=== PATIENT | male | born 1950 | race Caucasian/White ===

== ENCOUNTER 2017-05-26 15:53 | Inpatient (IN) | payer OTHER ==
[~2017-05-26] VITALS: Ht 172.7 cm; Wt 103.5 kg
[2017-05-26] MEDS ORDERED: TRMCR130WC TOP (16:36)
[2017-05-26] MEDS ORDERED: VERA120T15 PO (16:36)
[2017-05-26] MEDS ORDERED: METO25TA56 PO (16:36)
[2017-05-26] MEDS ORDERED: ATOR-24 PO (16:36)
[2017-05-26] MEDS ORDERED: MELO15TA4 PO (16:36)
[2017-05-26] MEDS ORDERED: FINA5TAB PO (16:36)
[2017-05-26] MEDS ORDERED: PRLSR20 PO (16:36)
[2017-05-26] MEDS ORDERED: LOSA50TA6 PO (16:36)
[2017-05-26] MEDS ORDERED: ASPI81TA28 PO (16:36)
--- NOTE | 2017-05-26 17:07 | DIAGNOSTIC IMAGING REPORT ---
ABD/PELVIS WITHOUT FOR STONE CT DOSE: 1550.15 mGy.cm HISTORY: Flank pain left flank pain eval for stone TECHNIQUE: Multiaxial CT images of the abdomen and pelvis were performed without the use of intravenous and oral contrast according to the standard department stone protocol. A dose lowering technique was utilized adhering to the principles of ALARA. COMPARISON STUDY: None. FINDINGS: Lung bases are clear. Liver and spleen are unremarkable in configuration. Gallbladder is negative for distention. Mild fatty replacement of the pancreas. Several nonobstructing bilateral renal calcifications. Several small bilateral renal cysts. Mild left renal hydroureteronephrosis. 3 mm partially obstructing calculus distal left ureter several centimeters from the left ureterovesical junction area in mild periureteral infiltrative change. Chronic colonic diverticulosis. No evidence for acute diverticulitis. Generalized atherosclerotic change and ectasia abdominal aorta. No well-defined focal aneurysm. Chronic sigmoid diverticulosis. IMPRESSION: 1. 3 mm calculus distal left ureter creating mild left renal hydroureteronephrosis. 2. Several additional nonobstructing renal calcifications bilaterally. 3. Chronic colonic diverticulosis. No evidence for acute diverticulitis. The above report was generated using voice recognition software. It may contain grammatical, syntax or spelling errors. Electronically signed by: Guanaco Ernst M.D. 05/26/2017 5:06 PM Dictated Date/Time: 05/26/2017 5:03 PM
[2017-05-26] MEDS ORDERED: SODIUM CHLORIDE 0.9% 1000ML 1,000 ML IV STA (17:14)
[2017-05-26] MEDS ORDERED: TAMSULOSIN HCL 0.4 MG CAP PO ONE (17:15)
[2017-05-26] MEDS ORDERED: CIPROFLOXACIN 400MG / 200ML D5W IV STA (17:19)
[2017-05-26 18:01] LABS: BASO % 0.4 %; BASO ABS # 0.05 K/uL (0-0.2); COMPLETE YES; EOS % 0.6 %; HEMATOCRIT 37.3 % (42-52); IG% 0.3 %; LYMPH % 11.6 %; LYMPH ABS # 1.37 K/uL (1.2-3.4); MEAN CELL VOLUME 83.8 fL (80-100); MEAN CORPUSCULAR HEMOGLOBIN 29.2 pg (25-34); MEAN CORPUSCULAR HGB CONC 34.9 g/dl (32-36); MEAN PLATELET VOLUME 9.1 fL (7.4-10.4); MONO % 10.3 %; NEUT % 76.8 %; PLATELET COUNT 249 K/uL (130-400); RED BLOOD COUNT 4.45 M/uL (4.7-6.1); WHITE BLOOD COUNT 11.82 K/uL (4.8-10.8)
[2017-05-26 18:05] LABS: URINE APPEARANCE CLEAR (CLEAR); URINE BILIRUBIN NEG (NEG); URINE COLOR YELLOW; URINE NITRITE NEG (NEG); URINE SPECIFIC GRAVITY 1.016 (1.000-1.030); UROBILINOGEN NEG (NEG)
--- NOTE | 2017-05-26 18:07 | EMERGENCY ROOM VISIT NOTE ---
History Report prepared by Fariha: Debbie Vuong Under the Supervision of: Dr. Adam Sprague M.D. First contact with patient: 16:16 Chief Complaint: ABNORMAL LABS Stated Complaint: ABNORMAL LABS- PHYSICIAN REFERRED History of Present Illness The patient is a 66 year old male who presents to the Emergency Room after abnormal labs that were drawn earlier today. The patient has been having LLQ abdominal pain for the past 3 days. He describes his pain as an ache. It improves with ibuprofen, and he rates his current pain as a 4/10 in severity. The patient notes some dizziness when he changes position. He denies fever, urinary symptoms, vomiting, and diarrhea. He has not had a bowel movement in 3 days. This is unusual for him. He also notes decreased appetite and states that he really has not eaten over the past 3 days. The patient saw his PCP, Dr. Alvarado, today for his symptoms. He ordered blood work and scheduled a CT for tomorrow afternoon. The patient's creatinine went from 1-1.9 and so the office called him and told him to come to the ED today for further evaluation. Source of History: patient Onset: today Position: abdomen (LLQ) Symptom Intensity: 4/10 Quality: ache Timing: constant Modifying Factors (Relieving): ibuprofen Associated Symptoms: No fevers, No vomiting, No diarrhea, No urinary symptoms Note: Pt notes constipation and dizziness with changing position. Review of Systems See HPI for pertinent positives & negatives. A total of 10 systems reviewed and were otherwise negative. Past Medical & Surgical Medical Problems: (1) Hypertension Family History No pertinent history stated. Social History Smoking Status: Former Smoker Marital Status: Housing Status: lives with significant other Current/Historical Medications Scheduled Aspirin (Aspirin Ec), 81 MG PO DAILY Atorvastatin (Lipitor), 40 MG PO DAILY Finasteride (Proscar), 5 MG PO DAILY Losartan Potassium (Cozaar), 50 MG PO DAILY Metoprolol Tartrate (Lopressor) (Lopressor), 37.5 MG PO BID Omeprazole (Prilosec), 20 MG PO DAILY Triamcinolone Acet (Aristocort 0.1%), 1 APPLN TOP BID Verapamil (Calan), 120 MG PO TID Scheduled PRN Meloxicam (Mobic), 15 MG PO DAILY PRN for Pain Physical Exam Vital Signs Date Time Temp Pulse Resp B/P (MAP) Pulse Ox O2 Delivery O2 Flow Rate FiO2 05/26/17 16:05 36.9 77 18 153/75 96 Room Air Physical Exam Constitutional: Vital signs reviewed. Eyes: Pupils are equal round reactive to light. Conjunctiva are noninjected. ENT: Pharynx is clear without erythema or exudate. Mucous membranes are moist. Neck supple without meningeal signs. Respiratory: Clear to auscultation bilaterally. Breath sounds are equal bilaterally. Cardiovascular: Regular rate and rhythm. No rubs or gallops. GI: Soft, nondistended. Minimal LLQ tenderness, no guarding. Bowel sounds are present. Musculoskeletal: No peripheral edema. No CVA tenderness. Integumentary: No cyanosis. Neurological: The patient is awake and alert. No focal deficits. Psychiatric: Normal affect. Medical Decision & Procedures ER Provider Diagnostic Interpretation: Radiology results as stated below per my review and the radiologist's interpretation: ABD/PELVIS WITHOUT FOR STONE CT DOSE: 1550.15 mGy.cm HISTORY: Flank pain left flank pain eval for stone TECHNIQUE: Multiaxial CT images of the abdomen and pelvis were performed without the use of intravenous and oral contrast according to the standard department stone protocol. A dose lowering technique was utilized adhering to the principles of ALARA. COMPARISON STUDY: None. FINDINGS: Lung bases are clear. Liver and spleen are unremarkable in configuration. Gallbladder is negative for distention. Mild fatty replacement of the pancreas. Several nonobstructing bilateral renal calcifications. Several small bilateral renal cysts. Mild left renal hydroureteronephrosis. 3 mm partially obstructing calculus distal left ureter several centimeters from the left ureterovesical junction area in mild periureteral infiltrative change. Chronic colonic diverticulosis. No evidence for acute diverticulitis. Generalized atherosclerotic change and ectasia abdominal aorta. No well-defined focal aneurysm. Chronic sigmoid diverticulosis. IMPRESSION: 1. 3 mm calculus distal left ureter creating mild left renal hydroureteronephrosis. 2. Several additional nonobstructing renal calcifications bilaterally. 3. Chronic colonic diverticulosis. No evidence for acute diverticulitis. The above report was generated using voice recognition software. It may contain grammatical, syntax or spelling errors. Electronically signed by: Guanaco Ernst M.D. 05/26/2017 5:06 PM Dictated Date/Time: 05/26/2017 5:03 PM Laboratory Results 05/26/17 17:36 Red Blood Count 4.45, Mean Corpuscular Volume 83.8, Mean Corpuscular Hemoglobin 29.2, Mean Corpuscular Hemoglobin Concent 34.9, Mean Platelet Volume 9.1, Neutrophils (%) (Auto) 76.8, Lymphocytes (%) (Auto) 11.6, Monocytes (%) (Auto) 10.3, Eosinophils (%) (Auto) 0.6, Basophils (%) (Auto) 0.4, Neutrophils # (Auto ) 9.08, Lymphocytes # (Auto) 1.37, Monocytes # (Auto) 1.22, Eosinophils # (Auto ) 0.07, Basophils # (Auto) 0.05 Test 05/26/17 17:30 05/26/17 17:36 05/26/17 17:41 White Blood Count 11.82 K/uL (4.8-10.8) Red Blood Count 4.45 M/uL (4.7-6.1) Hemoglobin 13.0 g/dL (14.0-18.0) Hematocrit 37.3 % (42-52) Mean Corpuscular Volume 83.8 fL (80-100) Mean Corpuscular Hemoglobin 29.2 pg (25-34) Mean Corpuscular Hemoglobin Concent 34.9 g/dl (32-36) Platelet Count 249 K/uL (130-400) Mean Platelet Volume 9.1 fL (7.4-10.4) Neutrophils (%) (Auto) 76.8 % Lymphocytes (%) (Auto) 11.6 % Monocytes (%) (Auto) 10.3 % Eosinophils (%) (Auto) 0.6 % Basophils (%) (Auto) 0.4 % Neutrophils # (Auto) 9.08 K/uL (1.4-6.5) Lymphocytes # (Auto) 1.37 K/uL (1.2-3.4) Monocytes # (Auto) 1.22 K/uL (0.11-0.59) Eosinophils # (Auto) 0.07 K/uL (0-0.5) Basophils # (Auto) 0.05 K/uL (0-0.2) RDW Standard Deviation 45.8 fL (36.4-46.3) RDW Coefficient of Variation 14.9 % (11.5-14.5) Immature Granulocyte % (Auto) 0.3 % Immature Granulocyte # (Auto) 0.03 K/uL (0.00-0.02) Labs from earlier today from [facility]: BUN 25 Creatinine 1.9 WBC 14 with a left shift Urine shows trace blood, few bacteria, and 3-5 WBCs ED Course 1616: The patient was evaluated in room B8. A complete history and physical exam was performed. 1712: I reassessed the patient at this time. He is feeling better and resting comfortably. I discussed the results and treatment plan with the patient. I answered all pertaining questions that he had. He expressed understanding and verbalized agreement. 1714: NSS 1000 ml @ 999 mls/hr IV 1715: Flomax 0.4 mg PO 1718: I spoke with DORI Parkinson. We discussed the patients case. The patient will be evaluated by the [facility] for further management. 1719: Cipro 400 mg IV Medical Decision This is a 66-year-old male who presents with left-sided abdominal pain. Differential diagnosis includes ureterolithiasis, hydronephrosis, renal failure , diverticulitis, abscess. I did perform a limited focused review of portions of the patient's old chart on the electronic medical record. The patient has had no recent pertinent visits to this hospital. I did evaluate the patient as noted above. IV access was established. The patient was treated with normal saline IV. I did order a urinalysis. He does have a I did order a CT of the abdomen and pelvis. I did review the images myself as well as the radiology report as described above. He does have a 3 mm left distal ureteral stone. Blood work was done prior to arrival. I did treat the patient with IV Cipro and NS. He was also given Flomax. I did discuss the case with the hospitals and rehabilitation case coordinator. I did discuss the test results with the patient and his . Medication Reconcilliation Current Medication List: was personally reviewed by me Blood Pressure Screening Patient's blood pressure: Elevated blood pressure Blood pressure disposition: Referred to PCP Consults Time Called: 1715 Consulting Physician: DORI Parkinson Returned Call: 1718 I spoke with DORI Parkinson. We discussed the patients case. The patient will be evaluated by the [facility] for further management. Impression Primary Impression: Acute kidney injury Additional Impressions: Obstructive uropathy Kidney stone on left side UTI (urinary tract infection) Scribe Attestation The scribe's documentation has been prepared under my direct and personally reviewed by me in its entirety. I confirm that the note above accurately reflects all work, treatment, procedures, and medical decision making performed by me. Departure Information Dispostion Being Evaluated By Hospitalist Referrals Fabian Alvarado MD (PCP) Patient Instructions My [facility] Problem Qualifiers Additional Impressions: UTI (urinary tract infection) Urinary tract infection type: site unspecified Hematuria presence: with hematuria Qualified Codes: N39.0 - Urinary tract infection, site not specified ; R31.9 - Hematuria, unspecified
[2017-05-26 18:08] LABS: MANUAL MICROSCOPIC REQUIRED? NO; REVIEW REQ? NO
[2017-05-26] MEDS ORDERED: ONDANSETRON INJ 2 MG/ML 2 ML VIAL IV PRN (18:15)
[2017-05-26] MEDS: SODIUM CHLORIDE 0.9% 1000ML 1,000 ML IV SCH (18:15)
[2017-05-26] MEDS ORDERED: MoRPHine SULFATE 4 MG/ML 1 ML CARP\\VIAL IV PRN (18:15)
[2017-05-26] MEDS ORDERED: ACETAMINOPHEN 325 MG TAB PO PRN (18:15)
[2017-05-26] MEDS ORDERED: MoRPHine SULFATE 4 MG/ML 1 ML CARP\\VIAL ONE (18:17)
[2017-05-26 18:21] LABS: BUN/CREATININE RATIO 12.4 (10-20); POTASSIUM 4.1 mmol/L (3.5-5.1)
[2017-05-26] MEDS ORDERED: PATIENT'S ALLERGY INFO NEEDS ENTERED SCH (18:30)
[2017-05-26 19:05] VITALS: Ht 172.7 cm; Wt 103.5 kg
[2017-05-26 19:30] VITALS: BP 144/77; PULSE 86; TEMP 36.9; O2SAT 96
[2017-05-26] MEDS: HYDROCODONE/ACETAMOPHEN 5/325MG TAB PO PRN (19:48)
[2017-05-26] MEDS ORDERED: PNEUMOCOCCAL POLYSACCHARIDES 25 MCG/0.5 ML VIAL/SYR IM. ONE (20:30)
[2017-05-26] MEDS ORDERED: PNEUMOCOCCAL ADMINISTRATION CHARGE ONE (20:30)
[2017-05-26 21:00] VITALS: BP 125/69; PULSE 77
[2017-05-26] MEDS: FINASTERIDE 5 MG TAB PO SCH (21:01)
[2017-05-26] MEDS: ATORVASTATIN 40 MG TAB PO SCH (21:01)
[2017-05-26] MEDS: METOPROLOL TARTRATE 25 MG TAB PO SCH (21:02)
[2017-05-26] MEDS: VERAPAMIL HCL 40 MG TAB PO SCH (21:02)
--- NOTE | 2017-05-26 21:13 | History and Physical ---
History & Physical Date & Time of Service: May 26, 2017 ~ 17:45 Chief Complaint: Flank Pain Primary Care Physician: Fabian Alvarado MD History of Present Illness 66 year old male who was referred to the ER by his PCP for evaluation of flank pain and abnormal outpatient labs. Patient reports that he started to develop left lower back pain about 4 days ago. Pain has started to wrap around left side. He has felt nauseous and had a couple episodes of vomiting. He denies hematemesis or coffee ground emesis. He reports a poor appetite. He has not had a bowel movement in 4 days. He has been taking Motrin around the clock for the past 4 days for the pain. He saw his PCP today for these complaints and outpatient labs were obtained that showed a creat of 1.9 and WBC 14K. He was then referred to the ER for further evaluation. Patient denies chest pain and shortness of breath. No fevers or chills. He denies lightheadedness, dizziness, diaphoresis, or syncopal events. He denies any urinary symptoms or hematuria. Upon arrival to the ER, patient had a CT abd/pelvis that is showing 3mm distal left ureteral stone with mild hydronephrosis. U/A is clean. WBC 11.8, creat 2.0. Patient was given IV Cipro, IVF, and Flomax. Past Medical/Surgical History Medical Problems: (1) Dyslipidemia Status: Chronic (2) HTN (hypertension) Status: Chronic Surgical Problems: (1) History of vasectomy Status: Chronic Family History FH: CHF (congestive heart failure) MOTHER Social History Smoking Status: Former Smoker Alcohol Use: occasionally Marital Status: Immunizations History of Influenza Vaccine: Yes Influenza Vaccine Date: Jul 16, 2016 History of Tetanus Vaccine?: Yes Tetanus Immunization Date: Oct 17, 2009 Allergies Coded Allergies: No Known Allergies (Unverified , 05/26/17) Home Medications Scheduled Aspirin (Aspirin Ec), 81 MG PO DAILY Atorvastatin (Lipitor), 40 MG PO DAILY Finasteride (Proscar), 5 MG PO DAILY Losartan Potassium (Cozaar), 50 MG PO DAILY Metoprolol Tartrate (Lopressor) (Lopressor), 37.5 MG PO BID Triamcinolone Acet (Aristocort 0.1%), 1 APPLN TOP BID Verapamil (Calan), 120 MG PO TID Scheduled PRN Meloxicam (Mobic), 15 MG PO DAILY PRN for Pain Review of Systems ROS per HPI, all other systems reviewed and negative Physical Exam Vital Signs Date Time Temp Pulse Resp B/P (MAP) Pulse Ox O2 Delivery O2 Flow Rate FiO2 05/26/17 19:40 Room Air 05/26/17 19:30 36.9 86 18 144/77 (99) 96 Room Air 05/26/17 19:05 Room Air 05/26/17 18:27 82 18 125/69 95 Room Air 05/26/17 16:05 36.9 77 18 153/75 96 Room Air General Appearance: no apparent distress Head: normocephalic Eyes: normal inspection ENT: hearing grossly normal Neck: supple, no JVD Respiratory/Chest: lungs clear, normal breath sounds, no respiratory distress Cardiovascular: regular rate, rhythm, no edema, normal peripheral pulses Abdomen/GI: normal bowel sounds, soft, + tenderness (LLQ), + distended Back: no CVA tenderness Extremities/Musculoskelatal: normal inspection, no calf tenderness Neurologic/Psych: no motor/sensory deficits, alert, normal mood/affect, oriented x 3 Skin: normal color, warm/dry Diagnostics Laboratory Results Results Past 24 Hours Test 05/26/17 17:30 05/26/17 17:36 05/26/17 17:41 Range/Units Urine Color YELLOW Urine Appearance CLEAR CLEAR Urine pH 5.0 4.5-7.5 Urine Specific [place] 1.016 1.000-1.030 Urine Protein NEG NEG Urine Glucose (UA) NEG NEG Urine Ketones NEG NEG Urine Occult Blood NEG NEG Urine Nitrite NEG NEG Urine Bilirubin NEG NEG Urine Urobilinogen NEG NEG Urine Leukocyte Esterase NEG NEG White Blood Count 11.82 4.8-10.8 K/uL Red Blood Count 4.45 4.7-6.1 M/uL Hemoglobin 13.0 14.0-18.0 g/dL Hematocrit 37.3 42-52 % Mean Corpuscular Volume 83.8 80-100 fL Mean Corpuscular Hemoglobin 29.2 25-34 pg Mean Corpuscular Hemoglobin Concent 34.9 32-36 g/dl Platelet Count 249 130-400 K/uL Mean Platelet Volume 9.1 7.4-10.4 fL Neutrophils (%) (Auto) 76.8 % Lymphocytes (%) (Auto) 11.6 % Monocytes (%) (Auto) 10.3 % Eosinophils (%) (Auto) 0.6 % Basophils (%) (Auto) 0.4 % Neutrophils # (Auto) 9.08 1.4-6.5 K/uL Lymphocytes # (Auto) 1.37 1.2-3.4 K/uL Monocytes # (Auto) 1.22 0.11-0.59 K/uL Eosinophils # (Auto) 0.07 0-0.5 K/uL Basophils # (Auto) 0.05 0-0.2 K/uL RDW Standard Deviation 45.8 36.4-46.3 fL RDW Coefficient of Variation 14.9 11.5-14.5 % Immature Granulocyte % (Auto) 0.3 % Immature Granulocyte # (Auto) 0.03 0.00-0.02 K/uL Sodium Level 142 136-145 mmol/L Potassium Level 4.1 3.5-5.1 mmol/L Chloride Level 112 98-107 mmol/L Carbon Dioxide Level 23 21-32 mmol/L Anion Gap 7.0 3-11 mmol/L Blood Urea Nitrogen 25 7-18 mg/dl Creatinine 2.00 0.60-1.40 mg/dl Est Creatinine Clear Calc Drug Dose 41.8 ml/min Estimated GFR () 38.9 Estimated GFR (Non- 33.5 BUN/Creatinine Ratio 12.4 10-20 Random Glucose 87 70-99 mg/dl Calcium Level 9.0 8.5-10.1 mg/dl Total Bilirubin 0.9 0.2-1 mg/dl Aspartate Amino Transf (AST/SGOT) 19 15-37 U/L Alanine Aminotransferase (ALT/SGPT) 28 12-78 U/L Alkaline Phosphatase 106 45-117 U/L Total Protein 7.5 6.4-8.2 gm/dl Albumin 3.7 3.4-5.0 gm/dl Globulin 3.8 2.5-4.0 gm/dl Albumin/Globulin Ratio 1.0 0.9-2 Lactic Acid Level 1.1 0.4-2.0 mmol/L Microbiology Results 05/26/17 Blood Culture, Received Pending 05/26/17 Blood Culture, Received Pending 05/26/17 Urine Culture, Received Pending Diagnostic Radiology CT ABD/PELVIS IMPRESSION: 1. 3 mm calculus distal left ureter creating mild left renal hydroureteronephrosis. 2. Several additional nonobstructing renal calcifications bilaterally. 3. Chronic colonic diverticulosis. No evidence for acute diverticulitis. Impression Assessment and Plan LEFT URETERAL CALCULI, HYDRONEPHROSIS - admit to tele - patient presenting with left flank pain x 4 days; outpatient labs showed CARLOS and leukocytosis, was referred to ER for further evaluation where CT abd/pelvis is showing 3mm distal left ureteral calculi with mild hydronephrosis - IVF, Flomax, pain control - strain urine - urine clean, WBC 11K, afebrile - no need for antibiotics - case discussed with Dr. Tee - will observe overnight, keep NPO after midnight for possible cysto CARLOS - likely multifactorial - prerenal due to poor PO intake and vomiting, increased used of NSAIDs, and obstructive due to renal calculi - IVF, hold ARB - follow up labs in AM HTN - BP controlled - holding losartan due to CARLOS - continue metoprolol and verapamil DYSLIPIDEMIA - continue statin DVT PROPHYLAXIS - SCDs due to possible procedure tomorrow DISPO - In my clinical judgment this beneficiary meets acute admission criteria, established by [facility], that includes being hospitalized through two midnights. I have seen and examined the patient and agree with the assessment and plan as stated. I will cont the Cipro campos-operatively until otherwise advised by Dr. Tee. NPO p MN for poss OR tomorrow. Cont pain control and IVF/Flomax. [place], DO Advanced Directives Existing Living Will: Yes Existing Power of Computer Aided Drafter: Yes VTE Prophylaxis VTE Risk Assessment Done? Y/N: Yes Risk Level: Moderate
--- NOTE | 2017-05-26 22:01 | Urology Consultation ---
History General Date of Service: May 26, 2017. Chief Complaint: L flank pain Primary Care Physician: Fabian Alvarado MD Pt seen a urologist before?: Yes If yes, why?: For an elevated PSA. History of Present Illness Patient is a pleasant 66-year-old male admitted due to intractable left-sided flank pain. He notes this started several days ago and he has been treating with large amounts of Motrin at home. This was associated with nausea and malaise. He notes that approximately 10 years ago he had a similar episode of colic but this past. He is unsure if he passed a stone. Patient has seen several urologists in the past for history of an elevated PSA. Most recently he follows up with [facility] for this evaluation. He has not been diagnosed with prostate cancer in the past. He denies difficulties with gross hematuria or recurrent colic. He is on finasteride for voiding issues. ER notes and hospitalist notes reviewed. CT scan images personally reviewed. Urology consultation is requested to assist with the patient's care. Of note, his creatinine is up to 2 on his current admission. He notes his pain has currently resolved after a single dose of Vicodin. HPI - Stones Number: 4 Size: obstructing stone 3 mm in size Location: left, UVJ Pain: left flank Patient has: + nausea, + hydronephrosis, No gross hematuria ER Visits: number (1) Prior stone composition: unknown Imaging Imaging: CT Laboratory Last 24 Hours Test 05/26/17 17:30 05/26/17 17:36 05/26/17 17:41 Urine Color YELLOW Urine Appearance CLEAR Urine pH 5.0 Urine Specific [place] 1.016 Urine Protein NEG Urine Glucose (UA) NEG Urine Ketones NEG Urine Occult Blood NEG Urine Nitrite NEG Urine Bilirubin NEG Urine Urobilinogen NEG Urine Leukocyte Esterase NEG White Blood Count 11.82 K/uL Red Blood Count 4.45 M/uL Hemoglobin 13.0 g/dL Hematocrit 37.3 % Mean Corpuscular Volume 83.8 fL Mean Corpuscular Hemoglobin 29.2 pg Mean Corpuscular Hemoglobin Concent 34.9 g/dl Platelet Count 249 K/uL Mean Platelet Volume 9.1 fL Neutrophils (%) (Auto) 76.8 % Lymphocytes (%) (Auto) 11.6 % Monocytes (%) (Auto) 10.3 % Eosinophils (%) (Auto) 0.6 % Basophils (%) (Auto) 0.4 % Neutrophils # (Auto) 9.08 K/uL Lymphocytes # (Auto) 1.37 K/uL Monocytes # (Auto) 1.22 K/uL Eosinophils # (Auto) 0.07 K/uL Basophils # (Auto) 0.05 K/uL RDW Standard Deviation 45.8 fL RDW Coefficient of Variation 14.9 % Immature Granulocyte % (Auto) 0.3 % Immature Granulocyte # (Auto) 0.03 K/uL Sodium Level 142 mmol/L Potassium Level 4.1 mmol/L Chloride Level 112 mmol/L Carbon Dioxide Level 23 mmol/L Anion Gap 7.0 mmol/L Blood Urea Nitrogen 25 mg/dl Creatinine 2.00 mg/dl Est Creatinine Clear Calc Drug Dose 41.8 ml/min Estimated GFR () 38.9 Estimated GFR (Non- 33.5 BUN/Creatinine Ratio 12.4 Random Glucose 87 mg/dl Calcium Level 9.0 mg/dl Total Bilirubin 0.9 mg/dl Aspartate Amino Transf (AST/SGOT) 19 U/L Alanine Aminotransferase (ALT/SGPT) 28 U/L Alkaline Phosphatase 106 U/L Total Protein 7.5 gm/dl Albumin 3.7 gm/dl Globulin 3.8 gm/dl Albumin/Globulin Ratio 1.0 Lactic Acid Level 1.1 mmol/L Past History BPH, hypertension, kidney stones, renal disease Past Surgical History: colonoscopy, vasectomy, other (prostate biopsy) Family History FH: CHF (congestive heart failure) MOTHER Social History Hx Tobacco Use In Past Year?: No Smoking: quit greater than 1 year Alcohol: occasional Marital status: Housing status: lives with family Immunizations History of Influenza Vaccine: Yes Influenza Vaccine Date: Jul 16, 2016 History of Tetanus Vaccine?: Yes Tetanus Immunization Date: Oct 17, 2009 Allergies Coded Allergies: No Known Allergies (Unverified , 05/26/17) Medications Home Medications: Home Meds and Scripts Medications Dose Route/Sig Max Daily Dose Days Date Category Dose Instructions Mobic (Meloxicam) 15 Mg Tab 15 Mg PO DAILY PRN 05/26/17 Reported Aspirin Ec (Aspirin) 81 Mg Tab 81 Mg PO DAILY 05/26/17 Reported Lopressor (Metoprolol Tartrate) 25 Mg Tab 37.5 Mg PO BID 05/26/17 Reported TAKE 1 & 1/2 OF 25 MG TAB Lipitor (Atorvastatin Calcium) 40 Mg Tab 40 Mg PO DAILY 05/26/17 Reported Proscar (Finasteride) 5 Mg Tab 5 Mg PO DAILY 05/26/17 Reported Calan (Verapamil HCl) 120 Mg Tab 120 Mg PO TID 05/26/17 Reported Aristocort 0.1% (Triamcinolone Acet) 90 Appln/30 Gm Cr 1 Appln TOP BID 05/26/17 Reported Cozaar (Losartan Potassium) 50 Mg Tab 50 Mg PO DAILY 05/26/17 Reported Inpatient Medications: Current Inpatient Medications Medications (Trade) Dose Ordered Sig/Lo Route Start Time Stop Time Status Last Admin Dose Admin Morphine Sulfate (MoRPHine SULFATE INJ) 4 mg Q4H PRN IV 05/26/17 18:15 06/09/17 18:14 Acetaminophen (Tylenol Tab) 650 mg Q4H PRN PO 05/26/17 18:15 06/25/17 18:14 Ondansetron HCl (Zofran Inj) 4 mg Q6H PRN IV 05/26/17 18:15 06/25/17 18:14 Sodium Chloride 1,000 ml @ 125 mls/hr Q8H IV 05/26/17 18:15 06/25/17 18:14 05/26/17 18:15 125 MLS/HR Tamsulosin HCl (Flomax Cap) 0.4 mg QAM PO 05/27/17 09:00 06/26/17 08:59 Acetaminophen/ Hydrocodone Bitart ([place] 5/325 Tab) 1 tab Q6H PRN PO 05/26/17 18:30 06/09/17 18:29 05/26/17 19:48 1 TAB Metoprolol Tartrate (Lopressor Tab) 37.5 mg BID PO 05/26/17 21:00 06/25/17 20:59 05/26/17 21:02 37.5 MG Verapamil HCl (Isoptin Tab) 120 mg TID PO 05/26/17 21:00 06/25/17 20:59 05/26/17 21:02 120 MG Atorvastatin Calcium (Lipitor Tab) 40 mg HS PO 05/26/17 21:00 06/25/17 20:59 05/26/17 21:01 40 MG Finasteride (Proscar Tab) 5 mg HS PO 05/26/17 21:00 06/25/17 20:59 05/26/17 21:01 5 MG Review of Systems Review of Systems Constitutional: No fever, No chills Eyes: No double vision Neurological: No passing out, No numbness/tingling Endocrine: + tired/sluggish Gastrointestinal: + abdominal pain, + nausea Cardiovascular: No angina, No irregular heartbeat Respiratory: No coughing up blood Skin: No boils Musculoskeletal: + back pain Blood / Lymphatic: No swollen glands Ears / Nose / Throat: No sinus, No hoarse voice Psychologic / Mental: No trouble remembering Male : + see HPI, + kidney stones Physical Exam Vital Signs: Vital Signs Past 12 Hours Date Time Temp Pulse Resp B/P (MAP) Pulse Ox O2 Delivery O2 Flow Rate FiO2 05/26/17 21:00 77 125/69 (87) 05/26/17 19:40 Room Air 05/26/17 19:30 36.9 86 18 144/77 (99) 96 Room Air 05/26/17 19:05 Room Air 05/26/17 18:27 82 18 125/69 95 Room Air 05/26/17 16:05 36.9 77 18 153/75 96 Room Air Physical Exam: General Appearance: no apparent distress, + obese ENT: hearing grossly normal Neck: supple, no adenopathy Respiratory/Chest: no respiratory distress, no accessory muscle use Cardiovascular: no JVD Gastrointestinal: Abdomen: normal abdomen Bladder: normal bladder Hernia: absent hernia Liver: normal liver Spleen: normal spleen Extremities: non-tender Neurologic/Psychiatric: alert Skin: normal color Assessment & Plan Assessment & Plan A/P 66-year-old male with a left 3 mm distal ureteral stone, colic and renal failure. Findings reviewed with the patient. Most concerning aspect of his presentation is his renal failure on passage of a relatively small stone. This may be multifactorial in origin including NSAID use, dehydration as well as obstruction. He is currently receiving IV fluids and notes his pain is controlled with relatively low doses of oral pain medication. We'll check his a.m. creatinine. If his renal function has improved and his pain remains controlled with low-dose narcotic medication may be reasonable to proceed with a trial of passage at home. However, in light of his renal function, there'll be a low threshold for intervention, likely in the form of ureteroscopic stone extraction and left ureteral stenting. Patient is nothing by mouth after midnight for possible intervention. He has been covered with ciprofloxacin by the primary service. Thank you for allowing us to participate in this patient's acute care. Will follow this patient with you.
[2017-05-26 22:52] VITALS: BP 101/63; PULSE 63; TEMP 37; O2SAT 94
[2017-05-27] VITALS (11 sets, daily range): BP systolic 121–161; BP diastolic 66–82; PULSE 80–109; TEMP 36.8–37.1; O2SAT 91–96
[2017-05-27] MEDS: SODIUM CHLORIDE 0.9% 1000ML 1,000 ML IV SCH ×3 (02:11→17:45)
[2017-05-27] MEDS: HYDROCODONE/ACETAMOPHEN 5/325MG TAB PO PRN ×2 (02:15→09:36)
[2017-05-27] MEDS: CIPROFLOXACIN / D5W 400 MG in PREMIXED IN D5W 200 ML IV SCH ×2 (05:44→17:42)
[2017-05-27 05:52] LABS: HEMATOCRIT 34.5 % (42-52); MEAN CELL VOLUME 84.4 fL (80-100); MEAN CORPUSCULAR HEMOGLOBIN 28.9 pg (25-34); MEAN CORPUSCULAR HGB CONC 34.2 g/dl (32-36); MEAN PLATELET VOLUME 8.9 fL (7.4-10.4); PLATELET COUNT 204 K/uL (130-400); RED BLOOD COUNT 4.09 M/uL (4.7-6.1); WHITE BLOOD COUNT 9.53 K/uL (4.8-10.8)
[2017-05-27 06:39] LABS: BUN/CREATININE RATIO 11.8 (10-20); CALCIUM 8.3 mg/dl (8.5-10.1); POTASSIUM 4.2 mmol/L (3.5-5.1)
--- NOTE | 2017-05-27 06:39 | DIAGNOSTIC IMAGING REPORT ---
KUB HISTORY: 66 years-old Male follow-up renal calculi. COMPARISON: CT abdomen and pelvis 05/26/2017 TECHNIQUE: KUB radiograph FINDINGS: The previously noted 5 mm calculus of the distal left ureter is still seen within the left lower pelvis in the region of the ureterovesicular junction. Bilateral nephrolithiasis redemonstrated. Pattern is nonobstructive. No fracture. Degenerative changes are seen about the hips and lumbar spine. IMPRESSION: 1. 5 mm calculus of the distal left ureter appears unchanged in positioning. 2. Nephrolithiasis. The above report was generated using voice recognition software. It may contain grammatical, syntax or spelling errors. Electronically signed by: Isaac Aguilar M.D. 05/27/2017 6:38 AM Dictated Date/Time: 05/27/2017 6:35 AM
--- NOTE | 2017-05-27 07:53 | Progress Note ---
Subjective Date of Service: May 27, 2017. Subjective Pt evaluation today including: conversation w/ patient, physical exam, chart review, lab review, review of inpatient medication list Pain: Persists, controlled with meds PO Intake: NPO per orders Voiding: no voiding problems 66 yo male with distal L ureteral stone, intractable colic, renal failure. Unfortunately his KUB this AM shows persistence of his distal L ureteral stone and his Cr is unimproved at 2. He denies stone passage. KUB images reviewed personally. His symptoms remain, controlled with PRN meds. Review of Systems Constitutional: No fever, No chills Eyes: No worsening of vision ENT: No hearing loss Respiratory: No wheezing, No shortness of breath Cardiac: No chest pain Abdomen: + pain, + nausea Neurologic: No memory loss, No paralysis Psychiatric: No depression symptoms Heme: No clotting problems, No night sweats Endo: No fatigue Skin: No new/changing skin lesions Objective Vital Signs Date Time Temp Pulse Resp B/P (MAP) Pulse Ox O2 Delivery O2 Flow Rate FiO2 05/26/17 22:52 37.0 63 16 101/63 (76) 94 Room Air 05/26/17 21:00 77 125/69 (87) 05/26/17 19:40 Room Air 05/26/17 19:30 36.9 86 18 144/77 (99) 96 Room Air 05/26/17 19:05 Room Air 05/26/17 18:27 82 18 125/69 95 Room Air 05/26/17 16:05 36.9 77 18 153/75 96 Room Air Physical Exam General Appearance: + mild distress, + obese ENT: normal ENT inspection, hearing grossly normal Neck: supple, no adenopathy Respiratory/Chest: no respiratory distress, no accessory muscle use Cardiovascular: no JVD Abdomen: non tender, soft Neurologic/Psychiatric: alert Skin: normal color Laboratory Results Last 24 Hours Test 05/26/17 17:30 05/26/17 17:36 05/26/17 17:41 05/27/17 05:40 Urine Color YELLOW Urine Appearance CLEAR Urine pH 5.0 Urine Specific [place] 1.016 Urine Protein NEG Urine Glucose (UA) NEG Urine Ketones NEG Urine Occult Blood NEG Urine Nitrite NEG Urine Bilirubin NEG Urine Urobilinogen NEG Urine Leukocyte Esterase NEG White Blood Count 11.82 K/uL 9.53 K/uL Red Blood Count 4.45 M/uL 4.09 M/uL Hemoglobin 13.0 g/dL 11.8 g/dL Hematocrit 37.3 % 34.5 % Mean Corpuscular Volume 83.8 fL 84.4 fL Mean Corpuscular Hemoglobin 29.2 pg 28.9 pg Mean Corpuscular Hemoglobin Concent 34.9 g/dl 34.2 g/dl Platelet Count 249 K/uL 204 K/uL Mean Platelet Volume 9.1 fL 8.9 fL Neutrophils (%) (Auto) 76.8 % Lymphocytes (%) (Auto) 11.6 % Monocytes (%) (Auto) 10.3 % Eosinophils (%) (Auto) 0.6 % Basophils (%) (Auto) 0.4 % Neutrophils # (Auto) 9.08 K/uL Lymphocytes # (Auto) 1.37 K/uL Monocytes # (Auto) 1.22 K/uL Eosinophils # (Auto) 0.07 K/uL Basophils # (Auto) 0.05 K/uL RDW Standard Deviation 45.8 fL 46.3 fL RDW Coefficient of Variation 14.9 % 14.9 % Immature Granulocyte % (Auto) 0.3 % Immature Granulocyte # (Auto) 0.03 K/uL Sodium Level 142 mmol/L 141 mmol/L Potassium Level 4.1 mmol/L 4.2 mmol/L Chloride Level 112 mmol/L 114 mmol/L Carbon Dioxide Level 23 mmol/L 21 mmol/L Anion Gap 7.0 mmol/L 6.0 mmol/L Blood Urea Nitrogen 25 mg/dl 24 mg/dl Creatinine 2.00 mg/dl 2.00 mg/dl Est Creatinine Clear Calc Drug Dose 41.8 ml/min 41.8 ml/min Estimated GFR () 38.9 38.9 Estimated GFR (Non- 33.5 33.5 BUN/Creatinine Ratio 12.4 11.8 Random Glucose 87 mg/dl 103 mg/dl Calcium Level 9.0 mg/dl 8.3 mg/dl Total Bilirubin 0.9 mg/dl Aspartate Amino Transf (AST/SGOT) 19 U/L Alanine Aminotransferase (ALT/SGPT) 28 U/L Alkaline Phosphatase 106 U/L Total Protein 7.5 gm/dl Albumin 3.7 gm/dl Globulin 3.8 gm/dl Albumin/Globulin Ratio 1.0 Lactic Acid Level 1.1 mmol/L Assessment and Plan A/P 66 yo male with L distal ureteral stone, intractable colic, unimproved renal failure. Seen the persistence of his symptoms and renal failure will proceed to OR today for cysto, left ureteroscopy, possible basket / laser and stent placement. Risks and benefits reviewed. Should be able to be discharged home after surgery later today. Patient vocalizes understanding of the treatment plan.
[2017-05-27] MEDS ORDERED: ATORVASTATIN 40 MG TAB PO SCH (09:00)
[2017-05-27] MEDS ORDERED: FINASTERIDE 5 MG TAB PO SCH (09:00)
[2017-05-27] MEDS: VERAPAMIL HCL 40 MG TAB PO SCH ×3 (09:00→20:59)
[2017-05-27] MEDS: TAMSULOSIN HCL 0.4 MG CAP PO SCH (09:30)
[2017-05-27] MEDS ORDERED: CIPROFLOXACIN CONSULT ACTIVE PRN ×2 (09:30)
[2017-05-27] MEDS: METOPROLOL TARTRATE 25 MG TAB PO SCH ×2 (09:30→20:59)
[2017-05-27] MEDS ORDERED: ONDANSETRON INJ 2 MG/ML 2 ML VIAL IV PRN (10:45)
[2017-05-27] MEDS ORDERED: ATROPINE SULFATE 0.1 MG/ML 5ML SYR IV PRN (10:45)
[2017-05-27] MEDS ORDERED: FENTANYL CITRATE INJ 50 MCG/1 ML 2 ML VIAL IV PRN (10:45)
[2017-05-27] MEDS ORDERED: EpHEDrine SULFATE INJ 50 MG/ML AMP IV PRN (10:45)
[2017-05-27] MEDS ORDERED: CONRAY 30% 150ML BOTTLE ONE (11:28)
[2017-05-27] MEDS ORDERED: CEFAZOLIN IV 2,000 MG/60 ML D5W IV ONE (11:43)
[2017-05-27] MEDS ORDERED: NURSING VERBAL MED ORDER ONE (11:45)
[2017-05-27] MEDS ORDERED: MIDAZOLAM HCL 1 MG/ML 2ML VIAL ONE (11:58)
[2017-05-27] MEDS ORDERED: LIDOCAINE HCL 2% 2 ML VIAL (20MG/ML) ONE (11:58)
[2017-05-27] MEDS ORDERED: FENTANYL CITRATE INJ 50 MCG/1 ML 2 ML VIAL ONE ×2 (11:58→12:47)
[2017-05-27] MEDS ORDERED: PROPOFOL IV EMULSION 10 MG/ML 20 ML VIAL IV ONE (11:58)
[2017-05-27] MEDS ORDERED: DEXAMETHASONE SOD INJ 4 MG/ML VIAL ONE (11:58)
[2017-05-27] MEDS ORDERED: ONDANSETRON INJ 2 MG/ML 2 ML VIAL ONE (11:58)
[2017-05-27] MEDS ORDERED: PHEN-775 PO (12:14)
[2017-05-27] MEDS ORDERED: OXYC-57 PO (12:14)
--- NOTE | 2017-05-27 12:18 | History & Physical Bridge Note ---
H&P Re-Evaluation Bridge Note: I have examined the patient, reviewed the History & Physical and in the interval since the performance of the History & Physical I have noted the following changes of clinical significance: No changes noted
[2017-05-27] MEDS ORDERED: PHENYLEPHRINE 100MCG/ML 5ML SYR ONE (12:50)
--- NOTE | 2017-05-27 13:13 | [facility] Operative Report ---
Operative Report Operative Date May 27, 2017. Pre-Operative Diagnosis Left ureteral stone Post-Operative Diagnosis Same as preop Procedure(s) Performed Cystoscopy, left ureteroscopy, laser lithotripsy, stent placement Surgeon Dr. Hunt Estimated Blood Loss None Findings Obstructing Left Distal Ureteral stone with dark cloudy urine with debris proximal. Specimens A: left ureteral stone fragments- for analysis Cystoscope-obtained urine sent for routine urinalysis, culture and sensitivity Drains 5x24 double J Left Anesthesia GET Complication(s) None Disposition Recovery Room / PACU Indications Obstructing stone Description of Procedure Patient was consented and brought back to the operating room. Patient was placed under anesthesia and into the dorsal lithotomy position. A time out was completed. A 30degree Cystoscope was placed into the bladder and the entire bladder was examined. The UO's were identified. The Left was cannulized with a catheter and a dark hydronephrotic drip was appreciated. Cloudy dark urine was aspirated. A wire was then placed. The short rigid ureteroscope was selected and taken into the left ureter. The stone was identified and was pulverized to dust and small fragments with the 200 laser. The ureter was examined up to the proximal ureter. No further stone was identified. The scope was removed. With the wire in place, a 6 x 24 Double J stent was placed. It was confirmed with fluoroscopy. With the stent in place, the bladder was emptied. The scope was removed. The patient was cleaned, aroused from anesthesia, and transferred to the pacu in stable condition having tolerated the procedure well with no complications. I was present and participated in all aspects of the procedure. The patient will be monitored in the PACU until transferred. Will monitor patient's renal function. I attest to the content of the Intraoperative Record and any orders documented therein. Any exceptions are noted below.
--- NOTE | 2017-05-27 13:20 | DIAGNOSTIC IMAGING REPORT ---
INTRAOPERATIVE SUPINE ABDOMEN 2 VIEWS CLINICAL HISTORY: CYSTO, LASER LITHOTRIPSY, STENT PLACEMENT COMPARISON STUDY: KUB dated 05/27/2017 FINDINGS: 18 seconds of fluoroscopic time was utilized. 2 intraoperative fluoroscopic spot images are provided for interpretation. These demonstrate a double-pigtail left-sided nephroureteral stent. The proximal pigtail is not fully formed IMPRESSION: Left-sided nephroureteral stent. Electronically signed by: Jesus Barrientos M.D. 05/27/2017 1:19 PM Dictated Date/Time: 05/27/2017 1:18 PM
[2017-05-27 13:49] LABS: URINE APPEARANCE TURBID (CLEAR); URINE COLOR DK YELLOW; URINE EPITHELIAL CELL AUTO >30 /lpf (0-5); URINE NITRITE NEG (NEG); URINE SPECIFIC GRAVITY 1.022 (1.000-1.030); UROBILINOGEN NEG (NEG)
--- NOTE | 2017-05-27 14:01 | Anesthesiology Progress Note ---
Anesthesia Post Op Note Date & Time May 27, 2017 at 14:00 Vital Signs Pain Intensity: 0 Vital Signs Past 12 Hours Date Time Temp Pulse Resp B/P (MAP) Pulse Ox O2 Delivery O2 Flow Rate FiO2 05/27/17 13:51 123/71 05/27/17 13:47 86 16 05/27/17 13:47 85 16 94 05/27/17 13:46 114/65 05/27/17 13:42 83 17 93 05/27/17 13:42 86 17 05/27/17 13:41 84 15 05/27/17 13:41 84 15 128/79 94 05/27/17 13:36 85 16 126/78 97 05/27/17 13:36 85 16 05/27/17 13:35 86 20 100 05/27/17 13:35 86 20 05/27/17 13:31 151/97 05/27/17 13:30 76 20 05/27/17 13:30 90 20 76 05/27/17 13:26 132/71 05/27/17 13:25 88 22 05/27/17 13:25 80 22 99 05/27/17 13:21 119/70 05/27/17 13:20 92 23 100 05/27/17 13:20 91 23 05/27/17 13:16 124/75 05/27/17 13:15 91 24 05/27/17 13:15 91 24 100 05/27/17 13:15 36.5 90 18 124/75 99 Mask 10 05/27/17 08:09 96 Room Air 05/27/17 08:07 37.0 80 16 138/82 (100) 96 Room Air 05/27/17 08:00 95 Room Air Notes Mental Status: alert / awake / arousable, participated in evaluation Pt Amnestic to Procedure: Yes Nausea / Vomiting: adequately controlled Pain: adequately controlled Airway Patency, RR, SpO2: stable & adequate BP & HR: stable & adequate Hydration State: stable & adequate Anesthetic Complications: no major complications apparent
[2017-05-27 14:06] LABS: MANUAL MICROSCOPIC REQUIRED? NO; REVIEW REQ? YES; URINE BILIRUBIN NEG (NEG)
[2017-05-27] MEDS ORDERED: BISACODYL 10 MG SUPP PR PRN (15:00)
[2017-05-27] MEDS: POLYETHYLENE (MIRALAX) 17 GM PACK PO PRN (16:18)
[2017-05-27] MEDS: FINASTERIDE 5 MG TAB PO SCH (20:58)
[2017-05-27] MEDS: ATORVASTATIN 40 MG TAB PO SCH (20:58)
--- NOTE | 2017-05-27 20:58 | Progress Note ---
Medicine Progress Note Date & Time of Visit: May 27, 2017 at 0900. Subjective 66 yo M presents with obstructed ureteral calculus. currently NPO plans for OR today pain controlled for the most part mentating clearly denies CP or SOB or other symptoms at this time including no fevers or chills. Objective Last 8 Hrs Date Time Temp Pulse Resp B/P (MAP) Pulse Ox O2 Delivery O2 Flow Rate FiO2 05/27/17 14:38 87 16 124/82 (96) 94 05/27/17 14:10 36.8 82 14 127/73 (91) 93 Room Air 05/27/17 14:10 93 Room Air 05/27/17 14:03 84 17 05/27/17 14:03 82 17 95 05/27/17 14:02 36.8 05/27/17 14:01 112/83 05/27/17 13:58 82 18 92 05/27/17 13:58 84 18 05/27/17 13:57 82 21 95 05/27/17 13:57 81 21 05/27/17 13:56 132/77 05/27/17 13:52 85 15 05/27/17 13:52 84 15 96 05/27/17 13:51 123/71 05/27/17 13:47 86 16 05/27/17 13:47 85 16 94 05/27/17 13:46 114/65 05/27/17 13:42 83 17 93 05/27/17 13:42 86 17 05/27/17 13:41 84 15 05/27/17 13:41 84 15 128/79 94 05/27/17 13:36 85 16 126/78 97 05/27/17 13:36 85 16 05/27/17 13:35 86 20 100 05/27/17 13:35 86 20 05/27/17 13:31 151/97 05/27/17 13:30 76 20 05/27/17 13:30 90 20 76 05/27/17 13:26 132/71 05/27/17 13:25 88 22 05/27/17 13:25 80 22 99 05/27/17 13:21 119/70 05/27/17 13:20 92 23 100 05/27/17 13:20 91 23 05/27/17 13:16 124/75 8/11/17 13:15 91 24 05/27/17 13:15 91 24 100 05/27/17 13:15 36.5 90 18 124/75 99 Mask 10 05/27/17 08:09 96 Room Air 05/27/17 08:07 37.0 80 16 138/82 (100) 96 Room Air 05/27/17 08:00 95 Room Air Physical Exam: GEN: WNWD, in no acute distress, alert and appropriate, lying in bed HEENT: NC/AT, pupils are equal and round bilaterally, normal sclerae, MMM CARDIO: reg rate, S1/2 heard without m/g/r LUNGS: CTA bilaterally, no crackles, rales or wheezes, good diaphragmatic excursion ABD: soft, non-tender, non-distended, no rebound or guarding EXTREMITY: RP and DP palpable 2+ bilat, no LE swelling or edema, extremities are warm and well-perfused NEURO: CN 2-12 grossly intact, no gross focal deficits. MUSC: moves all extremities equally. SKIN: warm and dry Laboratory Results: 05/27/17 05:40 05/27/17 05:40 Test 05/26/17 17:36 05/26/17 17:41 05/27/17 05:40 05/27/17 12:43 Immature Granulocyte % (Auto) 0.3 % White Blood Count 11.82 K/uL (4.8-10.8) Red Blood Count 4.45 M/uL (4.7-6.1) 4.09 M/uL (4.7-6.1) Hemoglobin 13.0 g/dL (14.0-18.0) Hematocrit 37.3 % (42-52) Mean Corpuscular Volume 83.8 fL (80-100) 84.4 fL (80-100) Mean Corpuscular Hemoglobin 29.2 pg (25-34) 28.9 pg (25-34) Mean Corpuscular Hemoglobin Concent 34.9 g/dl (32-36) 34.2 g/dl (32-36) Platelet Count 249 K/uL (130-400) Mean Platelet Volume 9.1 fL (7.4-10.4) 8.9 fL (7.4-10.4) Neutrophils (%) (Auto) 76.8 % Lymphocytes (%) (Auto) 11.6 % Monocytes (%) (Auto) 10.3 % Eosinophils (%) (Auto) 0.6 % Basophils (%) (Auto) 0.4 % Neutrophils # (Auto) 9.08 K/uL (1.4-6.5) Lymphocytes # (Auto) 1.37 K/uL (1.2-3.4) Monocytes # (Auto) 1.22 K/uL (0.11-0.59) Eosinophils # (Auto) 0.07 K/uL (0-0.5) Basophils # (Auto) 0.05 K/uL (0-0.2) Immature Granulocyte # (Auto) 0.03 K/uL (0.00-0.02) Total Bilirubin 0.9 mg/dl (0.2-1) Aspartate Amino Transf (AST/SGOT) 19 U/L (15-37) Alanine Aminotransferase (ALT/SGPT) 28 U/L (12-78) Alkaline Phosphatase 106 U/L (45-117) Total Protein 7.5 gm/dl (6.4-8.2) Albumin 3.7 gm/dl (3.4-5.0) Globulin 3.8 gm/dl (2.5-4.0) Albumin/Globulin Ratio 1.0 (0.9-2) Lactic Acid Level 1.1 mmol/L (0.4-2.0) RDW Standard Deviation 46.3 fL (36.4-46.3) RDW Coefficient of Variation 14.9 % (11.5-14.5) Anion Gap 6.0 mmol/L (3-11) Est Creatinine Clear Calc Drug Dose 41.8 ml/min Estimated GFR () 38.9 Estimated GFR (Non- 33.5 BUN/Creatinine Ratio 11.8 (10-20) Calcium Level 8.3 mg/dl (8.5-10.1) Urine Color DK YELLOW Urine Appearance TURBID (CLEAR) Urine pH 5.0 (4.5-7.5) Urine Specific [place] 1.022 (1.000-1.030) Urine Protein 2+ (NEG) Urine Glucose (UA) TRACE (NEG) Urine Ketones NEG (NEG) Urine Occult Blood 3+ (NEG) Urine Nitrite NEG (NEG) Urine Bilirubin NEG (NEG) Urine Urobilinogen NEG (NEG) Urine Leukocyte Esterase MODERATE (NEG) Urine WBC (Auto) >30 /hpf (0-5) Urine RBC (Auto) >30 /hpf (0-4) Urine Hyaline Casts (Auto) 1-5 /lpf (0-5) Urine Epithelial Cells (Auto) >30 /lpf (0-5) Urine Bacteria (Auto) NEG (NEG) Urine Pathogenic Casts See comments /lpf (0) Date/Time Source Procedure Growth Status 05/26/17 17:41 Blood Blood Culture Pending Received 05/27/17 12:43 Urine , Clean Catch Urine Culture Pending Received Last 24 Hours Test 05/26/17 17:30 05/26/17 17:36 05/26/17 17:41 05/27/17 05:40 Urine Color YELLOW Urine Appearance CLEAR Urine pH 5.0 Urine Specific [place] 1.016 Urine Protein NEG Urine Glucose (UA) NEG Urine Ketones NEG Urine Occult Blood NEG Urine Nitrite NEG Urine Bilirubin NEG Urine Urobilinogen NEG Urine Leukocyte Esterase NEG White Blood Count 11.82 K/uL 9.53 K/uL Red Blood Count 4.45 M/uL 4.09 M/uL Hemoglobin 13.0 g/dL 11.8 g/dL Hematocrit 37.3 % 34.5 % Mean Corpuscular Volume 83.8 fL 84.4 fL Mean Corpuscular Hemoglobin 29.2 pg 28.9 pg Mean Corpuscular Hemoglobin Concent 34.9 g/dl 34.2 g/dl Platelet Count 249 K/uL 204 K/uL Mean Platelet Volume 9.1 fL 8.9 fL Neutrophils (%) (Auto) 76.8 % Lymphocytes (%) (Auto) 11.6 % Monocytes (%) (Auto) 10.3 % Eosinophils (%) (Auto) 0.6 % Basophils (%) (Auto) 0.4 % Neutrophils # (Auto) 9.08 K/uL Lymphocytes # (Auto) 1.37 K/uL Monocytes # (Auto) 1.22 K/uL Eosinophils # (Auto) 0.07 K/uL Basophils # (Auto) 0.05 K/uL RDW Standard Deviation 45.8 fL 46.3 fL RDW Coefficient of Variation 14.9 % 14.9 % Immature Granulocyte % (Auto) 0.3 % Immature Granulocyte # (Auto) 0.03 K/uL Sodium Level 142 mmol/L 141 mmol/L Potassium Level 4.1 mmol/L 4.2 mmol/L Chloride Level 112 mmol/L 114 mmol/L Carbon Dioxide Level 23 mmol/L 21 mmol/L Anion Gap 7.0 mmol/L 6.0 mmol/L Blood Urea Nitrogen 25 mg/dl 24 mg/dl Creatinine 2.00 mg/dl 2.00 mg/dl Est Creatinine Clear Calc Drug Dose 41.8 ml/min 41.8 ml/min Estimated GFR () 38.9 38.9 Estimated GFR (Non- 33.5 33.5 BUN/Creatinine Ratio 12.4 11.8 Random Glucose 87 mg/dl 103 mg/dl Calcium Level 9.0 mg/dl 8.3 mg/dl Total Bilirubin 0.9 mg/dl Aspartate Amino Transf (AST/SGOT) 19 U/L Alanine Aminotransferase (ALT/SGPT) 28 U/L Alkaline Phosphatase 106 U/L Total Protein 7.5 gm/dl Albumin 3.7 gm/dl Globulin 3.8 gm/dl Albumin/Globulin Ratio 1.0 Lactic Acid Level 1.1 mmol/L Test 05/27/17 12:43 Urine Color DK YELLOW Urine Appearance TURBID Urine pH 5.0 Urine Specific [place] 1.022 Urine Protein 2+ Urine Glucose (UA) TRACE Urine Ketones NEG Urine Occult Blood 3+ Urine Nitrite NEG Urine Bilirubin NEG Urine Urobilinogen NEG Urine Leukocyte Esterase MODERATE Urine WBC (Auto) >30 /hpf Urine RBC (Auto) >30 /hpf Urine Hyaline Casts (Auto) 1-5 /lpf Urine Epithelial Cells (Auto) >30 /lpf Urine Bacteria (Auto) NEG Urine Pathogenic Casts See comments /lpf Date/Time Source Procedure Growth Status 05/26/17 17:41 Blood Blood Culture Pending Received 05/26/17 17:36 Blood Blood Culture Pending Received 05/27/17 12:43 Urine , Clean Catch Urine Culture Pending Received 05/26/17 17:30 Urine , Clean Catch Urine Culture - Preliminary NO GROWTH - LESS THAN 1,000 COLONIES/... Resulted Diagnostic Imaging: KUB HISTORY: 66 years-old Male follow-up renal calculi. COMPARISON: CT abdomen and pelvis 05/26/2017 TECHNIQUE: KUB radiograph FINDINGS: The previously noted 5 mm calculus of the distal left ureter is still seen within the left lower pelvis in the region of the ureterovesicular junction. Bilateral nephrolithiasis redemonstrated. Pattern is nonobstructive. No fracture. Degenerative changes are seen about the hips and lumbar spine. IMPRESSION: 1. 5 mm calculus of the distal left ureter appears unchanged in positioning. 2. Nephrolithiasis. Assessment & Plan 66 yo M presents with obstructed ureteral calculus. 1. L ureteral calculus: CARLOS present, plan for OR today, KUB unchanged this am , IVF/Flomax/aggressive pain control. Strain all urnee. 2. CARLOS-likely multifactorial including prerenal azotemia 2/2 poor PO intak and vomiting, increased use of NSAIDs to control pain at home and obstructive ureteral calculus. Creat unchanged this am. Keep overnight to ensure improved in am prior to dc to home. 3. HTN-controlled, holding losartan 2/2 CARLOS, cont metoprolol and verapamil 4. Dyslipidemia-cont statin DVT proph: SCDs in perioperative setting. Full Code Dispo-likely to home in am. [facility] Hospital[facility] Consultants: Urology-Drs. Tee and Gilbert Current Inpatient Medications: Current Inpatient Medications Medications (Trade) Dose Ordered Sig/Lo Route Start Time Stop Time Status Last Admin Dose Admin Morphine Sulfate (MoRPHine SULFATE INJ) 4 mg Q4H PRN IV 05/26/17 18:15 06/09/17 18:14 05/27/17 05:45 4 MG Acetaminophen (Tylenol Tab) 650 mg Q4H PRN PO 05/26/17 18:15 06/25/17 18:14 Ondansetron HCl (Zofran Inj) 4 mg Q6H PRN IV 05/26/17 18:15 06/25/17 18:14 Sodium Chloride 1,000 ml @ 125 mls/hr Q8H IV 05/26/17 18:15 06/25/17 18:14 05/27/17 10:11 125 MLS/HR Tamsulosin HCl (Flomax Cap) 0.4 mg QAM PO 05/27/17 09:00 06/26/17 08:59 05/27/17 09:30 0.4 MG Acetaminophen/ Hydrocodone Bitart ([place] 5/325 Tab) 1 tab Q6H PRN PO 05/26/17 18:30 06/09/17 18:29 05/27/17 09:36 1 TAB Metoprolol Tartrate (Lopressor Tab) 37.5 mg BID PO 05/26/17 21:00 06/25/17 20:59 05/27/17 09:30 37.5 MG Verapamil HCl (Isoptin Tab) 120 mg TID PO 05/26/17 21:00 06/25/17 20:59 05/26/17 21:02 120 MG Atorvastatin Calcium (Lipitor Tab) 40 mg HS PO 05/26/17 21:00 06/25/17 20:59 05/26/17 21:01 40 MG Finasteride (Proscar Tab) 5 mg HS PO 05/26/17 21:00 06/25/17 20:59 05/26/17 21:01 5 MG Ciprofloxacin/ Dextrose 400 mg/ Prmx 200 ml @ 100 mls/hr Q12H IV 05/27/17 06:00 06/05/17 17:59 05/27/17 05:44 100 MLS/HR Ciprofloxacin (Consult) 1 ea UD PRN N/A 05/27/17 09:30 06/26/17 09:29 Fentanyl Citrate (Fentanyl Inj) 50 mcg Q5M PRN IV 05/27/17 10:45 05/27/17 16:00 Ondansetron HCl (Zofran Inj) 4 mg ONE PRN IV 05/27/17 10:45 05/27/17 16:00 Ephedrine Sulfate (EpHEDrine SULFATE INJ) 5 mg Q5M PRN IV 05/27/17 10:45 05/27/17 16:00 Atropine Sulfate (Atropine Sulfate 0.1MG/Ml Inj) 0.5 mg Q1M PRN IV 05/27/17 10:45 05/27/17 16:00
[2017-05-28] MEDS: SODIUM CHLORIDE 0.9% 1000ML 1,000 ML IV SCH (02:13)
[2017-05-28 03:36] VITALS: BP 135/79; PULSE 73; TEMP 36.9; O2SAT 96
[2017-05-28] MEDS: CIPROFLOXACIN / D5W 400 MG in PREMIXED IN D5W 200 ML IV SCH (05:43)
[2017-05-28 06:43] LABS: BUN/CREATININE RATIO 15.6 (10-20); CALCIUM 7.9 mg/dl (8.5-10.1); CREATININE 1.4 mg/dl (0.60-1.40); POTASSIUM 4.2 mmol/L (3.5-5.1)
[2017-05-28] MEDS ORDERED: CALCIUM GLUCONATE 10% 2,000 MG in SODIUM CHLORIDE 0.9% 50ML 50 ML IV ONE (08:15)
[2017-05-28] MEDS: TAMSULOSIN HCL 0.4 MG CAP PO SCH (09:00)
[2017-05-28] MEDS: VERAPAMIL HCL 40 MG TAB PO SCH (09:09)
[2017-05-28] MEDS: METOPROLOL TARTRATE 25 MG TAB PO SCH (09:09)
--- NOTE | 2017-05-28 10:37 | Progress Note ---
Subjective Date of Service: May 28, 2017. Subjective Pt evaluation today including: conversation w/ patient Pain: Tolerating PO Intake: Good OOB and ambulating. Urinating frequently with hematuria. Tolerating stents. No complaints. Requesting discharge. Review of Systems All Other Systems: Reviewed and Negative (See HPI) Objective Vital Signs Date Time Temp Pulse Resp B/P (MAP) Pulse Ox O2 Delivery O2 Flow Rate FiO2 05/28/17 08:00 Room Air 05/28/17 03:36 36.9 73 16 135/79 (97) 96 Room Air 05/28/17 00:00 Room Air 05/27/17 22:52 37.1 91 15 121/76 (91) 93 Room Air 05/27/17 21:51 36.9 81 16 132/80 (97) 91 Room Air 05/27/17 20:57 109 161/79 (106) 05/27/17 16:56 36.9 88 16 123/71 (88) 95 Room Air 05/27/17 16:11 36.9 96 16 123/66 (85) 94 Room Air 05/27/17 15:30 Room Air 05/27/17 15:18 36.9 95 16 125/80 (95) 96 Room Air 05/27/17 14:38 87 16 124/82 (96) 94 05/27/17 14:10 36.8 82 14 127/73 (91) 93 Room Air 05/27/17 14:10 93 Room Air 05/27/17 14:03 84 17 05/27/17 14:03 82 17 95 05/27/17 14:02 36.8 05/27/17 14:01 112/83 05/27/17 13:58 82 18 92 05/27/17 13:58 84 18 05/27/17 13:57 82 21 95 05/27/17 13:57 81 21 05/27/17 13:56 132/77 05/27/17 13:52 85 15 05/27/17 13:52 84 15 96 05/27/17 13:51 123/71 05/27/17 13:47 86 16 05/27/17 13:47 85 16 94 05/27/17 13:46 114/65 05/27/17 13:42 83 17 93 05/27/17 13:42 86 17 05/27/17 13:41 84 15 05/27/17 13:41 84 15 128/79 94 05/27/17 13:36 85 16 126/78 97 05/27/17 13:36 85 16 05/27/17 13:35 86 20 100 05/27/17 13:35 86 20 05/27/17 13:31 151/97 05/27/17 13:30 76 20 05/27/17 13:30 90 20 76 05/27/17 13:26 132/71 05/27/17 13:25 88 22 05/27/17 13:25 80 22 99 05/27/17 13:21 119/70 05/27/17 13:20 92 23 100 05/27/17 13:20 91 23 05/27/17 13:16 124/75 05/27/17 13:15 91 24 05/27/17 13:15 91 24 100 05/27/17 13:15 36.5 90 18 124/75 99 Mask 10 Physical Exam General Appearance: WD/WN Eyes: normal inspection ENT: normal ENT inspection Neck: no JVD Respiratory/Chest: no accessory muscle use Cardiovascular: regular rate, rhythm Abdomen: non tender, soft Extremities: normal range of motion Neurologic/Psychiatric: hotel general manager II-XII nml as tested Skin: normal color Laboratory Results Last 24 Hours Test 05/27/17 12:43 05/28/17 05:46 Urine Color DK YELLOW Urine Appearance TURBID Urine pH 5.0 Urine Specific [place] 1.022 Urine Protein 2+ Urine Glucose (UA) TRACE Urine Ketones NEG Urine Occult Blood 3+ Urine Nitrite NEG Urine Bilirubin NEG Urine Urobilinogen NEG Urine Leukocyte Esterase MODERATE Urine WBC (Auto) >30 /hpf Urine RBC (Auto) >30 /hpf Urine Hyaline Casts (Auto) 1-5 /lpf Urine Epithelial Cells (Auto) >30 /lpf Urine Bacteria (Auto) NEG Urine Pathogenic Casts See comments /lpf Sodium Level 142 mmol/L Potassium Level 4.2 mmol/L Chloride Level 114 mmol/L Carbon Dioxide Level 22 mmol/L Anion Gap 6.0 mmol/L Blood Urea Nitrogen 22 mg/dl Creatinine 1.40 mg/dl Est Creatinine Clear Calc Drug Dose 59.7 ml/min Estimated GFR () 59.8 Estimated GFR (Non- 51.6 BUN/Creatinine Ratio 15.6 Random Glucose 96 mg/dl Calcium Level 7.9 mg/dl Assessment and Plan 1 POD1 s/p stent/stone treatment left doing well. Improved overall. Will need to continue activity and hdyration. Plan for follow up in 1 week for stent removal. Call with any issues. Patient likely need PRN medication for stent discomfort. Will follow. Likely home today.
[2017-05-28] MEDS: POLYETHYLENE (MIRALAX) 17 GM PACK PO PRN (10:59)
[2017-05-28 11:03] VITALS: BP 135/79; PULSE 73; TEMP 36.9; O2SAT 96
[2017-05-28] MEDS ORDERED: FLM4 PO (11:03)
--- NOTE | 2017-05-28 11:11 | Discharge Instructions ---
Discharge Instructions Date of Service May 28, 2017. Admission Reason for Admission: Renal Calculi Discharge Discharge Diagnosis / Problem: Ureteral calculi s/p laser lithotripsy and stent placement Discharge Goals Goal(s): Therapeutic intervention Activity Recommendations Activity Limitations: per Instructions/Follow-up section . Instructions / Follow-Up Instructions / Follow-Up Please take all medications as instructed. Please hold LOSARTAN until seen by your primary care physician. You will need non-fasting bloodwork to be done the day prior to seeing your PCP for follow-up. You have been provided a lab prescription for this. Do NOT take MOBIC or any NSAIDs (Ibuprofen, Naproxen, Aleve, Motrin, etc) until further instructed by your PCP. Please use the PERCOCET or plain TYLENOL if needed. Please note, PERCOCET has TYLENOL in it. Max dose of TYLENOL from ALL sources should not exceed 3000mg in 24 hours. You have a follow-up appointment with your PCP on , 05/31 @ 12:45pm with Dr. Alvarado. You will need to contact the [facility] [place] on Tuesday to make a 1 week follow-up appointment with Dr. Hunt. It was a pleasure taking care of you! Call if you have any questions or problems. You can reach a [facility] hospitalist on duty at [facility] 24 hours a day by calling [phone]. Take care of yourself. Yessy Denson DO [facility] Hospitalist Current Hospital Diet Patient's current hospital diet: AHA Diet (Heart Healthy) Discharge Diet Recommended Diet: AHA Diet (Heart Healthy) Procedures Procedures Performed: Cystoscopy, left ureteroscopy, laser lithotripsy, stent placement Pending Studies Studies pending at discharge: yes List of pending studies: Urine culture-pending Prelimiary blood cultures are negative, final reading pending at discharge. Medical Emergencies . Who to Call and When: Medical Emergencies: If at any time you feel your situation is an emergency, please call [phone] immediately. . Non-Emergent Contact Non-Emergency issues call your: Primary Care Provider . . "Provider Documentation" section prepared by Yessy Denson. . VTE Core Measure Inpt VTE Proph given/why not?: SCD's
--- NOTE | 2017-05-28 11:16 | Discharge Summary ---
Discharge Summary Date of Service May 28, 2017. Discharge Summary Admission Date: May 26, 2017 at 18:10 Discharge Date: May 28, 2017 Discharge Disposition: Home Principal Diagnosis: L ureteral calculus s/p laser lithotripsy with stent placement CARLOS-improved HTN Dyslipidemia hypocalcemia Procedures: L ureteral laser lithotripsy with stent placement Vaccinations: None. Consultations: Urology-Drs. Tee and Gilbert Pending Studies/Follow-Up: per instructions below Medication Reconciliation New Medications: Oxycodone/Acetaminophen 5MG/325MG (Percocet 5MG/325MG) Tab 1 TABLET PO Q6H PRN for Pain for 5 Days, #14 TAB Phenazopyridine Hcl (Pyridium) 200 Mg Tab 200 MG PO TID, #6 TAB Tamsulosin HCl (Tamsulosin HCl) 0.4 Mg Cap 0.4 MG PO QAM for 30 Days, #30 CAP Continued Medications: Aspirin (Aspirin Ec) 81 Mg Tab 81 MG PO DAILY Atorvastatin (Lipitor) 40 Mg Tab 40 MG PO DAILY, TAB Finasteride (Proscar) 5 Mg Tab 5 MG PO DAILY, TAB Metoprolol Tartrate (Lopressor) (Lopressor) 25 Mg Tab 37.5 MG PO BID, TAB TAKE 1 & 1/2 OF 25 MG TAB Verapamil (Calan) 120 Mg Tab 120 MG PO TID, TAB Discontinued Medications: Losartan Potassium (Cozaar) 50 Mg Tab 50 MG PO DAILY, TAB Meloxicam (Mobic) 15 Mg Tab 15 MG PO DAILY PRN for Pain, TAB Triamcinolone Acet (Aristocort 0.1%) 90 Appln/30 Gm Cr 1 APPLN TOP BID Admission Information HPI (per Admitting provider): 66 year old male who was referred to the ER by his PCP for evaluation of flank pain and abnormal outpatient labs. Patient reports that he started to develop left lower back pain about 4 days ago. Pain has started to wrap around left side. He has felt nauseous and had a couple episodes of vomiting. He denies hematemesis or coffee ground emesis. He reports a poor appetite. He has not had a bowel movement in 4 days. He has been taking Motrin around the clock for the past 4 days for the pain. He saw his PCP today for these complaints and outpatient labs were obtained that showed a creat of 1.9 and WBC 14K. He was then referred to the ER for further evaluation. Patient denies chest pain and shortness of breath. No fevers or chills. He denies lightheadedness, dizziness, diaphoresis, or syncopal events. He denies any urinary symptoms or hematuria. Upon arrival to the ER, patient had a CT abd/pelvis that is showing 3mm distal left ureteral stone with mild hydronephrosis. U/A is clean. WBC 11.8, creat 2.0. Patient was given IV Cipro, IVF, and Flomax. Physical Exam (per Admitting): General Appearance: no apparent distress Head: normocephalic Eyes: normal inspection ENT: hearing grossly normal Neck: supple, no JVD Respiratory/Chest: lungs clear, normal breath sounds, no respiratory distress Cardiovascular: regular rate, rhythm, no edema, normal peripheral pulses Abdomen/GI: normal bowel sounds, soft, + tenderness (LLQ), + distended Back: no CVA tenderness Extremities/Musculoskelatal: normal inspection, no calf tenderness Neurologic/Psych: no motor/sensory deficits, alert, normal mood/affect, oriented x 3 Skin: normal color, warm/dry Hospital Course 66 yo M presents with obstructed ureteral calculus. 1. L ureteral calculus: CARLOS present, plan for OR today, KUB unchanged this am , IVF/Flomax/aggressive pain control. Strain all urine. Taken to OR for L ureteral laser lithotripsy with stent placement. Cipro and Ancef were given perioperatively, but no abx were continued on discharge as no infection was present. 2. CARLOS-likely multifactorial including prerenal azotemia 2/2 poor PO intake and vomiting, increased use of NSAIDs to control pain at home and obstructive ureteral calculus. Creat improved from 2-1.4 on day of discharge. Close PCP follow-up was recommended. 3. HTN-controlled, holding losartan 2/2 CARLOS, cont metoprolol and verapamil. Cont to hold at discharge to be added back by PCP on followup. 4. Dyslipidemia-cont statin On day of discharge he was afebrile and hemodynamically stable. He was ambulating and mentating at baseline. He was tolerating PO. He was requesting discharge. Physical exam was unremarkable including no CVA tenderness or abdominal discomfort. He was sent home in stable condition with close Urology and PCP follow-up. Yessy Denson DO [facility] Hospitalist Total time spent on discharge = 60 minutes This includes examination of the patient, discharge planning, medication reconciliation, and communication with other providers. Discharge Instructions [facility] [address] [place] [address] Discharge Medical Patient Name: Bentley Harding Unit Number: [id number] Date of : 1950 Patient Status: Admitted Inpatient Attending Doctor: Yessy Denson DO DI: Medical v4 Discharge Instructions Date of Service May 28, 2017. Admission Reason for Admission: Renal Calculi Discharge Discharge Diagnosis / Problem: Ureteral calculi s/p laser lithotripsy and stent placement Discharge Goals Goal(s): Therapeutic intervention Activity Recommendations Activity Limitations: per Instructions/Follow-up section . Instructions / Follow-Up Instructions / Follow-Up Please take all medications as instructed. Please hold LOSARTAN until seen by your primary care physician. You will need non-fasting bloodwork to be done the day prior to seeing your PCP for follow-up. You have been provided a lab prescription for this. Do NOT take MOBIC or any NSAIDs (Ibuprofen, Naproxen, Aleve, Motrin, etc) until further instructed by your PCP. Please use the PERCOCET or plain TYLENOL if needed. Please note, PERCOCET has TYLENOL in it. Max dose of TYLENOL from ALL sources should not exceed 3000mg in 24 hours. You have a follow-up appointment with your PCP on 05/31 @ 12:45pm with Dr. Alvarado. You will need to contact the [facility] [place] office on Tuesday to make a 1 week follow-up appointment with Dr. Hunt. It was a pleasure taking care of you! Call if you have any questions or problems. You can reach a [facility] Hospitalist on duty at [facility] 24 hours a day by calling [phone]. Take care of yourself. DO Kun MartelJohn [facility] Psychiatric Pavilion[facility] Current Hospital Diet Patient's current hospital diet: AHA Diet (Heart Healthy) Discharge Diet Recommended Diet: AHA Diet (Heart Healthy) Procedures Procedures Performed: Cystoscopy, left ureteroscopy, laser lithotripsy, stent placement Pending Studies Studies pending at discharge: yes List of pending studies: Urine culture-pending Prelimiary blood cultures are negative, final reading pending at discharge. Medical Emergencies . Who to Call and When: Medical Emergencies: If at any time you feel your situation is an emergency, please call [phone] immediately. . Non-Emergent Contact Non-Emergency issues call your: Primary Care Provider . . "Provider Documentation" section prepared by Yessy Denson. . VTE Core Measure Inpt VTE Proph given/why not?: SCD's Additional Copies To Fabian Alvarado MD; Marcus Hunt D.O.
== END 2017-05-28 12:21 | disposition home or self-care (01) | DRG 669 ==
LOC: C.EDB 15:55 → C.3E 18:10 → ENRESERV 18:54
PROVIDERS: ADMIT Hospitalist; ATTEND Hospitalist
PROC: 0T778DZ Dilation of Left Ureter with Intraluminal Device, Via Natural or Artificial Opening Endoscopic (ICD-10-PCS; principal; 2017-05-27 11:00)
PROC: 0TC48ZZ Extirpation of Matter from Left Kidney Pelvis, Via Natural or Artificial Opening Endoscopic (ICD-10-PCS; principal; 2017-05-27 11:00)
DX: N17.9 Acute kidney failure, unspecified (principal); N39.0 Urinary tract infection, site not specified; N13.2 Hydronephrosis with renal and ureteral calculous obstruction; I10 Essential (primary) hypertension; E78.5 Hyperlipidemia, unspecified; Z87.891 Personal history of nicotine dependence; Z79.82 Long term (current) use of aspirin

== ENCOUNTER → 2017-07-05 | Outpatient (CLI) | payer OTHER ==
[~2017-07-05] MED LIST: ASPI81TA28 PO; ATOR-24 PO; FINA5TAB PO; FLM4 PO; IBUP-1451 PO; METO25TA56 PO; ONDA4TAB10 SL; VERA120T15 PO
--- NOTE | 2017-07-05 12:43 | DIAGNOSTIC IMAGING REPORT ---
KUB CLINICAL HISTORY: 66 years-old Male presenting with nephrolithiasis. TECHNIQUE: Single supine view of the abdomen was obtained. COMPARISON: 05/27/[address] from 05/26/2017.. FINDINGS: Previously noted 5 mm calculus in the distal left ureter is not radiographically apparent. Bilateral renal calculi. No other calcifications project over the kidneys or along the courses of the ureters. Nonobstructive bowel gas pattern. No gross pneumoperitoneum. Osseous structures normal. IMPRESSION: 1. Previously noted calculus in the distal left ureter is not radiographically apparent, possibly indicating passage. 2. Bilateral nephrolithiasis. Electronically signed by: Hal Guerrero M.D. 07/05/2017 12:42 PM Dictated Date/Time: 07/05/2017 12:40 PM
--- NOTE | 2017-07-05 12:47 | DIAGNOSTIC IMAGING REPORT ---
RENAL ULTRASOUND CLINICAL HISTORY: Nephrolithiasis. COMPARISON STUDY: CT of the abdomen and pelvis May 26, 2017. TECHNIQUE: Sonography of the kidneys and the urinary bladder was performed. FINDINGS: The right kidney measures 11.3 x 5.2 x 5.7 cm and the left measures 11.9 x 5.7 x 5.2 cm. There is no hydronephrosis. Small renal calculi shown on prior CT are not visualized on this exam, possibly due to technique. Both ureteral jets were identified. Multiple anechoic bilateral renal lesions represent cysts, the largest which is a 2.6 and the left renal cyst. IMPRESSION: 1. No hydronephrosis. 2. Multiple bilateral renal cysts. 3. The small bilateral renal calculi shown on CT of May 26, 2017 are not visualized on this exam, likely due to sonographic technique. Electronically signed by: Juan Owens M.D. 07/05/2017 12:46 PM Dictated Date/Time: 07/05/2017 12:44 PM
== END | disposition home or self-care (01) ==
LOC: C.ULTR 11:36
PROVIDERS: ATTEND Urology
DX: N20.0 Calculus of kidney (principal); N28.1 Cyst of kidney, acquired

== ENCOUNTER 2017-07-13 19:01 | Emergency (ER) | payer OTHER ==
[~2017-07-13] VITALS: Ht 172.7 cm; Wt 102.5 kg
[~2017-07-13 19:01] MED LIST changes: -IBUP-1451 PO; -ONDA4TAB10 SL
[2017-07-13 19:12] VITALS: TEMP 36.7; Ht 172.7 cm; Wt 102.5 kg
[2017-07-13] MEDS ORDERED: SODIUM CHLORIDE 0.9% 1000ML 1,000 ML IV STA (19:35)
[2017-07-13] MEDS ORDERED: KETOROLAC TROMETHAMINE 30 MG/ML VIAL IV STA (19:35)
[2017-07-13 19:45] LABS: BASO % 0.7 %; BASO ABS # 0.09 K/uL (0-0.2); COMPLETE YES; HEMATOCRIT 40.7 % (42-52); IG% 0.4 %; LYMPH % 14.1 %; MEAN CELL VOLUME 81.2 fL (80-100); MEAN CORPUSCULAR HEMOGLOBIN 28.7 pg (25-34); MEAN CORPUSCULAR HGB CONC 35.4 g/dl (32-36); MEAN PLATELET VOLUME 9.2 fL (7.4-10.4); MONO % 6.4 %; NEUT % 77.4 %; PLATELET COUNT 313 K/uL (130-400); RED BLOOD COUNT 5.01 M/uL (4.7-6.1); WHITE BLOOD COUNT 12.07 K/uL (4.8-10.8)
--- NOTE | 2017-07-13 19:52 | EMERGENCY ROOM VISIT NOTE ---
History Report prepared by Fariha: Sonali Boo Under the Supervision of: Dr. Braden Singh M.D. First contact with patient: 19:27 Chief Complaint: ABDOMINAL PAIN Stated Complaint: PAIN ON TIP OF PENIS, ABDOMINAL PAIN, VOMITING History of Present Illness The patient is a 66 year old male who presents to the Emergency Room with complaints of persistent lower abdominal pain starting NEWSPERSON. His symptoms began with an aching pain at the tip of his penis. He then started having lower abdominal pain what radiates into his back. He then developed nausea and vomited 3 times. He took 2 Tylenol for the pain, but vomited afterwards. 1.5 months ago, he had a kidney stone that had to be removed because it was affecting his kidney function. At that time, he was having more pain in his back and less in his abdomen. He was at his urologist's office today, at which time he had no symptoms. He had an ultrasound which showed no kidney stones. Blood work last week showed that his kidney function has returned back to normal. He currently does not have any nausea. He denies any fever, chills, headache, dizziness, chest pain, SOB, or testicle pain. He is not on any blood thinners. He denies any history of peptic ulcers. Source of History: patient Onset: NEWSPERSON Position: abdomen (lower) Quality: other (pain) Timing: other (persistent) Associated Symptoms: + nausea, + vomiting, + back pain, No fevers, No chills , No headache, No chest pain, No SOB Note: Pt reports penis pain. Pt denies dizziness, testicle pain. Review of Systems See HPI for pertinent positives and negatives. A total of ten systems were reviewed and were otherwise negative. Past Medical & Surgical Medical Problems: (1) Dyslipidemia (2) HTN (hypertension) Surgical Problems: (1) History of vasectomy Family History FH: CHF (congestive heart failure) MOTHER Social History Smoking Status: Former Smoker Marital Status: Housing Status: lives with significant other Current/Historical Medications Scheduled Aspirin (Aspirin Ec), 81 MG PO DAILY Atorvastatin (Lipitor), 40 MG PO HS Finasteride (Proscar), 5 MG PO HS Metoprolol Tartrate (Lopressor) (Lopressor), 37.5 MG PO BID Ondasetron Odt (Zofran Odt), 4 MG SL Q6H Tamsulosin HCl (Tamsulosin HCl), 1 CAP PO DAILY Verapamil (Calan), 120 MG PO TID Scheduled PRN Ibuprofen Tab (Motrin), 800 MG PO Q8H PRN for Pain Allergies Coded Allergies: No Known Allergies (Unverified , 07/13/17) Physical Exam Vital Signs Date Time Temp Pulse Resp B/P (MAP) Pulse Ox O2 Delivery O2 Flow Rate FiO2 07/13/17 21:12 91 16 158/93 93 Room Air 07/13/17 20:14 86 07/13/17 19:57 85 21 166/89 95 Room Air 07/13/17 19:12 36.7 98 18 158/87 96 Room Air Physical Exam GENERAL: Awake, alert, well-appearing, in no distress HENT: Normocephalic, atraumatic. Dry mucous membranes. EYES: Normal conjunctiva. Sclera non-icteric. NECK: Supple. No nuchal rigidity. FROM. No JVD. RESPIRATORY: Clear to auscultation. CARDIAC: Regular rate, normal rhythm. Extremities warm and well perfused. Pulses equal. ABDOMEN: Soft, non-distended. Mild suprapubic tenderness to palpation. No rebound or guarding. No masses. : Bilateral area in groin of mild erythema with desquamation. RECTAL: Deferred. MUSCULOSKELETAL: Chest examination reveals no tenderness. The back is symmetrical on inspection without obvious abnormality. There is no CVA tenderness to palpation. No joint edema. LOWER EXTREMITIES: Calves are equal size bilaterally and non-tender. No edema. No discoloration. NEURO: Normal sensorium. No sensory or motor deficits noted. SKIN: No rash or jaundice noted. Medical Decision & Procedures ER Provider Diagnostic Interpretation: Radiology results as stated below per my review and radiologist interpretation: ABD/PELVIS IV CONTRAST ONLY CT DOSE: 1080.73 mGycm HISTORY: Pain Lower abd pain - h/o kidney stones TECHNIQUE: Multiaxial CT images of the abdomen and pelvis were performed following the use of intravenous contrast. A dose lowering technique was utilized adhering to the principles of ALARA. COMPARISON STUDY: 05/26/2017 FINDINGS: Lung bases are clear. Mild fatty infiltration of liver. Pancreas is unremarkable. Posterior exophytic cyst superior pole left kidney unchanged. No evidence for an obstructing left renal calcification. Right kidney shows mild edematous change with a mild degree of perinephric infiltrative change. Mild right hydroureteronephrosis. This extends to an obstructing calculus at the right distal ureter medially proximal to the right ureterovesical junction. There are no bladder calcifications. Findings of chronic sigmoid diverticulosis. No evidence for acute diverticulitis. Mild chronic descending diverticulosis. IMPRESSION: 1. 3 mm obstructing calculus distal right ureter immediately proximal to the right ureterovesical junction. 2. Mild/moderate right renal hydroureteronephrosis. 3. Chronic sigmoid as well as descending colonic diverticulosis. 4. No evidence for acute diverticulitis. The above report was generated using voice recognition software. It may contain grammatical, syntax or spelling errors. Electronically signed by: Guanaco Ernst M.D. 07/13/2017 9:06 PM Dictated Date/Time: 07/13/2017 9:01 PM Laboratory Results 07/13/17 19:37 Red Blood Count 5.01, Mean Corpuscular Volume 81.2, Mean Corpuscular Hemoglobin 28.7, Mean Corpuscular Hemoglobin Concent 35.4, Mean Platelet Volume 9.2, Neutrophils (%) (Auto) 77.4, Lymphocytes (%) (Auto) 14.1, Monocytes (%) (Auto) 6.4, Eosinophils (%) (Auto) 1.0, Basophils (%) (Auto) 0.7, Neutrophils # (Auto) 9.34, Lymphocytes # (Auto) 1.70, Monocytes # (Auto) 0.77, Eosinophils # (Auto) 0.12, Basophils # (Auto) 0.09 07/13/17 19:37 Test 07/13/17 19:37 07/13/17 19:53 White Blood Count 12.07 K/uL (4.8-10.8) Red Blood Count 5.01 M/uL (4.7-6.1) Hemoglobin 14.4 g/dL (14.0-18.0) Hematocrit 40.7 % (42-52) Mean Corpuscular Volume 81.2 fL (80-100) Mean Corpuscular Hemoglobin 28.7 pg (25-34) Mean Corpuscular Hemoglobin Concent 35.4 g/dl (32-36) Platelet Count 313 K/uL (130-400) Mean Platelet Volume 9.2 fL (7.4-10.4) Neutrophils (%) (Auto) 77.4 % Lymphocytes (%) (Auto) 14.1 % Monocytes (%) (Auto) 6.4 % Eosinophils (%) (Auto) 1.0 % Basophils (%) (Auto) 0.7 % Neutrophils # (Auto) 9.34 K/uL (1.4-6.5) Lymphocytes # (Auto) 1.70 K/uL (1.2-3.4) Monocytes # (Auto) 0.77 K/uL (0.11-0.59) Eosinophils # (Auto) 0.12 K/uL (0-0.5) Basophils # (Auto) 0.09 K/uL (0-0.2) RDW Standard Deviation 43.4 fL (36.4-46.3) RDW Coefficient of Variation 14.7 % (11.5-14.5) Immature Granulocyte % (Auto) 0.4 % Immature Granulocyte # (Auto) 0.05 K/uL (0.00-0.02) Anion Gap 10.0 mmol/L (3-11) Est Creatinine Clear Calc Drug Dose 59.4 ml/min Estimated GFR () 59.8 Estimated GFR (Non- 51.6 BUN/Creatinine Ratio 13.6 (10-20) Calcium Level 10.1 mg/dl (8.5-10.1) Urine Color DK YELLOW Urine Appearance CLOUDY (CLEAR) Urine pH 5.0 (4.5-7.5) Urine Specific [place] 1.033 (1.000-1.030) Urine Protein 1+ (NEG) Urine Glucose (UA) NEG (NEG) Urine Ketones TRACE (NEG) Urine Occult Blood TRACE (NEG) Urine Nitrite NEG (NEG) Urine Bilirubin NEG (NEG) Urine Urobilinogen NEG (NEG) Urine Leukocyte Esterase NEG (NEG) Urine WBC (Auto) /hpf (0-5) Urine RBC (Auto) /hpf (0-4) Urine Hyaline Casts (Auto) /lpf (0-5) Urine Epithelial Cells (Auto) /lpf (0-5) Urine Bacteria (Auto) (NEG) Urine RBC 0-4 /hpf (0-4) Urine WBC 1-5 /hpf (0-5) Urine Epithelial Cells 0-5 /lpf (0-5) Urine Crystals (NONE PRSENT) Urine Calcium Oxalate Crystals PRESENT (NONE PRSENT) Urine Bacteria NEG (NEG) Urine Hyaline Casts 1-5 /lpf (0-5) Urine Pathogenic Casts /lpf (0) Urine Mucus PRESENT (NONE PRSENT) Laboratory results reviewed by me Medications Administered Medications (Trade) Dose Ordered Sig/Lo Route Start Time Stop Time Status Last Admin Dose Admin Sodium Chloride 1,000 ml @ 999 mls/hr Q1H1M STAT IV 07/13/17 19:35 07/13/17 20:35 DC 07/13/17 19:51 999 MLS/HR Ketorolac Tromethamine (Toradol Inj) 30 mg NOW STAT IV 07/13/17 19:35 07/13/17 19:38 DC 07/13/17 19:51 30 MG Tamsulosin HCl (Flomax Cap) 0.4 mg NOW ONCE PO 07/13/17 21:15 07/13/17 21:16 DC 07/13/17:17 0.4 MG Oxycodone/ Acetaminophen (Percocet 5-325mg Tab) 1 tab NOW ONCE PO 07/13/17 21:30 07/13/17 21:31 DC 07/13/17 21:28 1 TAB ED Course 1933: The patient was evaluated in room A11B. A complete history and physical exam was performed. 1934: Toradol Inj 30 mg IV, NSS 1000 ml @ 999 mls/hr IV. 2114: Flomax Cap 0.4 mg PO. 2129: Oxycodone/Acetaminophen 1 tab PO. 2202: I reevaluated the patient. I discussed his test results with him. He verbalized agreement of the treatment plan. I spoke with him about admission for pain control or going home and following up with urology in the morning. Because he is feeling improved, he has decided to go home. He was discharged home. Medical Decision I reviewed the patient's past medical history, medications, and the nursing notes as described above. Differential diagnosis: cystitis, pyelonephritis, renal stone, prostatitis. The patient is a 66-year-old gentleman with a past medical history of prior kidney stones who presents emergency Department with acute onset lower abdominal and pain in his penis or history of present illness. On arrival the patient is uncomfortable but in no acute distress, afebrile with stable vital signs. WBC 12 however UA negative for infection. CT shows 3 mm obstructing calculus distal right ureter immediately proximal to the right ureterovesical junction with mild to moderate hydroureter nephrosis. Patient's creatinine is 1.4 which is similar to recent discharge although slightly elevated from this past week per patient. Otherwise patient's symptoms are much improved after IV fluids and analgesia and Flomax. Given the kidney stone size and high probability of passage outpatient management is reasonable. However, I discussed options with the patient for admission for pain control and urology consultation in the morning versus discharge with close outpatient follow-up. Given the patient felt improved he preferred discharge and he will call his urologist in the morning. Findings and plan for follow-up d/w patient. Patient agreeable and d/c'd per discharge instructions. Medication Reconcilliation Current Medication List: was personally reviewed by me Blood Pressure Screening Patient's blood pressure: Elevated blood pressure Blood pressure disposition: Elevated BP felt to be situational Impression Primary Impression: Ureterolithiasis Scribe Attestation The scribe's documentation has been prepared under my direction and personally reviewed by me in its entirety. I confirm that the note above accurately reflects all work, treatment, procedures, and medical decision making performed by me. Departure Information Dispostion Home / Self-Care Prescriptions Ibuprofen Tab (MOTRIN) 800 Mg Tab 800 MG PO Q8H Y for Pain for 2 Days, #6 TAB Prov: Braden Singh M.D. 07/13/17 Ondasetron Odt (ZOFRAN ODT) 4 Mg Tab 4 MG SL Q6H for Nausea, #6 TAB Prov: Braden Singh M.D. 07/13/17 Tamsulosin HCl (Tamsulosin HCl) 0.4 Mg Cap 1 CAP PO DAILY for 7 Days, #7 CAP Prov: Braden Singh M.D. 07/13/17 Referrals Fabian Alvarado MD (PCP) Marcus Tee M.D. Patient Instructions Kidney Stones, My [facility] Additional Instructions Please follow up with your urologist tomorrow for re-evaluation. You likely have a 3mm right sided kidney stone that is almost in your bladder. Otherwise, your exam, CT scan, and lab results did not show signs of an emergent condition at this time. Drink plenty of fluids to ensure hydration. Flomax as directed to help stone passage. Ibuprofen as directed for pain. Zofran as needed for nausea. Take your home Percocet for additional breakthrough pain relief. Return to the emergency department for worsening symptoms as described in the accompanying instructions.
[2017-07-13 20:07] LABS: BUN/CREATININE RATIO 13.6 (10-20); CALCIUM 10.1 mg/dl (8.5-10.1); CREATININE 1.4 mg/dl (0.60-1.40); POTASSIUM 3.8 mmol/L (3.5-5.1)
[2017-07-13 20:12] LABS: URINE APPEARANCE CLOUDY (CLEAR); URINE BILIRUBIN NEG (NEG); URINE COLOR DK YELLOW; URINE NITRITE NEG (NEG); URINE SPECIFIC GRAVITY 1.033 (1.000-1.030); UROBILINOGEN NEG (NEG); ZZUR CULT IF INDIC CLEAN CATCH NO
[2017-07-13 20:14] LABS: MANUAL MICROSCOPIC REQUIRED? YES; REVIEW REQ? NO
[2017-07-13 20:33] LABS: URINE BACTERIA NEG (NEG); URINE MUCUS PRESENT (NONE PRSENT); URINE RBC 0-4 /hpf (0-4)
[2017-07-13] MEDS ORDERED: OPTIRAY 320 IV PRN (20:45)
--- NOTE | 2017-07-13 21:08 | DIAGNOSTIC IMAGING REPORT ---
ABD/PELVIS IV CONTRAST ONLY CT DOSE: 1080.73 mGycm HISTORY: Pain Lower abd pain - h/o kidney stones TECHNIQUE: Multiaxial CT images of the abdomen and pelvis were performed following the use of intravenous contrast. A dose lowering technique was utilized adhering to the principles of ALARA. COMPARISON STUDY: 05/26/2017 FINDINGS: Lung bases are clear. Mild fatty infiltration of liver. Pancreas is unremarkable. Posterior exophytic cyst superior pole left kidney unchanged. No evidence for an obstructing left renal calcification. Right kidney shows mild edematous change with a mild degree of perinephric infiltrative change. Mild right hydroureteronephrosis. This extends to an obstructing calculus at the right distal ureter medially proximal to the right ureterovesical junction. There are no bladder calcifications. Findings of chronic sigmoid diverticulosis. No evidence for acute diverticulitis. Mild chronic descending diverticulosis. IMPRESSION: 1. 3 mm obstructing calculus distal right ureter immediately proximal to the right ureterovesical junction. 2. Mild/moderate right renal hydroureteronephrosis. 3. Chronic sigmoid as well as descending colonic diverticulosis. 4. No evidence for acute diverticulitis. The above report was generated using voice recognition software. It may contain grammatical, syntax or spelling errors. Electronically signed by: Guanaco Ernst M.D. 07/13/2017 9:06 PM Dictated Date/Time: 07/13/2017 9:01 PM
[2017-07-13 21:12] VITALS: BP 158/93; PULSE 91; O2SAT 93
[2017-07-13] MEDS ORDERED: TAMSULOSIN HCL 0.4 MG CAP PO ONE (21:15)
[2017-07-13] MEDS ORDERED: OXYCODONE/ACETAMINOPHEN 5-325 TAB PO ONE (21:30)
[2017-07-13] MEDS ORDERED: ONDA4TAB10 SL (22:22)
[2017-07-13] MEDS ORDERED: FLM4 PO (22:22)
[2017-07-13] MEDS ORDERED: IBUP-1451 PO (22:22)
== END 2017-07-13 22:30 | disposition home or self-care (01) ==
LOC: C.EDB 19:03 → C.EDA 22:30
DX: N20.1 Calculus of ureter (principal); E78.5 Hyperlipidemia, unspecified; I10 Essential (primary) hypertension; Z87.442 Personal history of urinary calculi; Z82.49 Family history of ischemic heart disease and other diseases of the circulatory system; Z87.891 Personal history of nicotine dependence; Z79.82 Long term (current) use of aspirin; Z79.899 Other long term (current) drug therapy

== ENCOUNTER → 2017-08-10 | Outpatient (CLI) | payer OTHER ==
[~2017-08-10] MED LIST changes: +ONDA4TAB10 SL
--- NOTE | 2017-08-10 09:08 | DIAGNOSTIC IMAGING REPORT ---
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 Possible distal left ureteral calculus is again considered. This potentially overlies the lateral left sacrum. There are no significant paravertebral calcifications. IMPRESSION: 1. Potential residual calcification overlying the left sacrum within the left ureter. 2. Bilateral nephrocalcinosis on the prior study is not easily appreciated on the current exam. The above report was generated using voice recognition software. It may contain grammatical, syntax or spelling errors. Electronically signed by: Guanaco Ernst M.D. 08/10/2017 9:07 AM Dictated Date/Time: 08/10/2017 8:58 AM
== END | disposition home or self-care (01) ==
LOC: C.RAD 08:38
PROVIDERS: ATTEND Urology
DX: N40.1 Benign prostatic hyperplasia with lower urinary tract symptoms (principal)

== ENCOUNTER → 2018-01-09 | Outpatient (CLI) | payer OTHER | END | disposition home or self-care (01) | LOC: C.LABSPEC 16:59 | PROVIDERS: ATTEND Urology | DX: N20.0 Calculus of kidney (principal) ==